=== PATIENT | male | born 1965 | race Caucasian/White ===

== ENCOUNTER → 2021-06-09 | Outpatient (CLI) | payer BC ==
--- NOTE | 2021-06-09 08:40 | CT ---
EXAMINATION TYPE: CT sinus wo con DATE OF EXAM: 06/09/2021 COMPARISON: HISTORY: sinusitis CT DLP: 563 mGycm. Automated Exposure Control for Dose Reduction was Utilized. TECHNIQUE: CT scan of the sinuses is performed without contrast, axial images are obtained, coronal r eformatted images are also reviewed. FINDINGS: Air-fluid level is noted in the right maxillary sinus, there is some associated mucoperiost eal thickening within the right maxillary sinus as well as the left maxillary sinus and ethmoid air c ells, sphenoid sinus. Lobular soft tissue present at the level of the ostiomeatal unit on the left, h iatus semilunaris thought to be patent. There is a deviated nasal septum present. Right ostiomeatal u nit is patent. Mastoid air cells appear well aerated. External auditory canals are patent, there is no erosion of th e scutum bilaterally, auditory ossicles show symmetric appearance. Temporomandibular joints are intac t. Orbits are symmetric. IMPRESSION: Evidence of chronic sinusitis, difficult to exclude polyp disease, acute sinusitis involv ing the right maxillary sinus
== END | disposition home or self-care (01) ==
LOC: RADCTMAIN 06:37
PROVIDERS: ATTEND Otolaryngology
DX: J32.9 Chronic sinusitis, unspecified (principal); R43.8 Other disturbances of smell and taste
CPT/HCPCS: 70486

== ENCOUNTER → 2023-03-06 | Outpatient (CLI) | payer BC ==
--- NOTE | 2023-03-06 12:53 | FL ---
EXAMINATION TYPE: FL barium swallow DATE OF EXAM: 03/06/2023 CLINICAL INDICATION: 57-year-old male K21.9 GASTRO-ESOPHAGEAL REFLUX DISEASE WITHOUT ESO. Intermitten t burning sensation at night when lying down. Sensation of fullness and pressure. COMPARISON: None Total Fluoroscopy Time: 2 minutes 17 seconds 594.24 mGycm2 DAP dose 44 images obtained. FINDINGS: There is an episode of aspiration into the upper trachea that occurred during large continuous swallo ws. This is probably inadvertent due to the unfamiliar barium consistency. The swallowing mechanism is otherwise normal and hypopharyngeal anatomy is preserved. The cervical and thoracic portions have a normal course and caliber. Mild tertiary peristaltic waves are noted along with mildly blunted secondary stripping waves. This results in slight delay in cleara nce of contrast from the esophagus. The mucosa is normal and no persistent filling defect is encountered. There is a small sliding hiatal hernia and severe gastroesophageal reflux to the level of the thoraci c inlet encountered during Valsalva and positional maneuvers. IMPRESSION: 1. Small sliding hiatal hernia with severe gastroesophageal reflux seen. 2. Mild esophageal dysmotility, probably age-related change. 3. An episode of aspiration probably inadvertent due to the unfamiliar barium consistency. However, t he aspiration seems to have been silent. Correlate to exclude any recurrent respiratory issues.
== END | disposition home or self-care (01) ==
LOC: RADUSWWP 09:46
PROVIDERS: ATTEND Otolaryngology
DX: K21.9 Gastro-esophageal reflux disease without esophagitis (principal); K22.4 Dyskinesia of esophagus; K44.9 Diaphragmatic hernia without obstruction or gangrene
CPT/HCPCS: 74220